=== PATIENT | male | born 1950 | race Caucasian/White ===

== ENCOUNTER 2017-02-01 12:40 | Inpatient (IN) | payer OTHER, MEDICAID ==
[~2017-02-01] VITALS: Ht 175.3 cm; Wt 72.1 kg
[2017-02-01 12:49] VITALS: BP 171/98
--- NOTE | 2017-02-01 13:00 | NUR ---
PT BIBA TO BED 5 AT THIS TIME.
--- NOTE | 2017-02-01 13:12 | NUR ---
Note undone in EDM - 02/01/17 at 1553 by MED1 67/M BIBA C/O SEIZURES. EMS STATES PT WAS FROM ADULT DAY CARE IN [place]. EMS STATES PT HAD SEIZURE FOR ONE MINUTE PRIOR TO THIER ARRIVAL ON SCENE. PT HAD ANOTHER SEIZURE EN ROUTE FOR 45 SECONDS, PT WAS GIVEN 2.5NG INTRANASAL VERSED. PT HAS HX OF SEIZURES. SKIN IS PINK/WARM/DRY; G TUBE AT ABDOMEN. PT AWAKE, UNVERBAL ACTING NEUROLOGICALLY AT BASELINE; LUNGS CLEAR BL; HR EVEN AND REGULAR; NO FEVER, CP, SOB, OR COUGH NOTED AT THIS TIME; PATIENT STATES PAIN OF 0/10 AT THIS TIME; PATIENT POSITIONED FOR COMFORT; HOB ELEVATED; BEDRAILS UP X2; BED DOWN. ER MD MADE AWARE OF PT STATUS.
--- NOTE | 2017-02-01 13:12 | NUR ---
67/M BIBA C/O SEIZURES. EMS STATES PT WAS FROM ADULT DAY CARE IN [place]. EMS STATES PT HAD SEIZURE FOR ONE MINUTE PRIOR TO THIER ARRIVAL ON SCENE. PT HAD ANOTHER SEIZURE EN ROUTE FOR 45 SECONDS, PT WAS GIVEN 2.5NG INTRANASAL VERSED. PT HAS HX OF SEIZURES. SKIN IS PINK/WARM/DRY; SKIN TEAR MIDDLE FINGER OF L HAND ;G TUBE AT ABDOMEN. PT AWAKE, UNVERBAL ACTING NEUROLOGICALLY AT BASELINE; LUNGS CLEAR BL; HR EVEN AND REGULAR; NO FEVER, CP, SOB, OR COUGH NOTED AT THIS TIME; PATIENT STATES PAIN OF 0/10 AT THIS TIME; PATIENT POSITIONED FOR COMFORT; HOB ELEVATED; BEDRAILS UP X2; BED DOWN. ER MD MADE AWARE OF PT STATUS.
--- NOTE | 2017-02-01 13:12 | NUR ---
Note undone in EDM - 02/01/17 at 1526 by MED1 67/M BIBA C/O SEIZURES. EMS STATES PT WAS FROM ADULT DAY CARE IN [place]. EMS STATES PT HAD SEIZURE FOR ONE MINUTE PRIOR TO THIER ARRIVAL ON SCENE. PT HAD ANOTHER SEIZURE EN ROUTE FOR 45 SECONDS, PT WAS GIVEN 2.5NG INTRANASAL VERSED. PT HAS HX OF SEIZURES. SKIN IS PINK/WARM/DRY; PT AWAKE, UNVERBAL ACTING NEUROLOGICALLY AT BASELINE; LUNGS CLEAR BL; HR EVEN AND REGULAR; NO FEVER, CP, SOB, OR COUGH NOTED AT THIS TIME; PATIENT STATES PAIN OF 0/10 AT THIS TIME; PATIENT POSITIONED FOR COMFORT; HOB ELEVATED; BEDRAILS UP X2; BED DOWN. ER MD MADE AWARE OF PT STATUS.
[2017-02-01] MEDS ORDERED: NACL 0.9% 1,000 ML IV ONE (13:20)
[2017-02-01] MEDS ORDERED: SYNTHROID0.05 MG GT (13:29)
[2017-02-01] MEDS ORDERED: LIORESAL10 MG GT (13:29)
[2017-02-01] MEDS ORDERED: DEPAKENE250 MG/51 GT (13:29)
[2017-02-01] MEDS ORDERED: VITAMIN D1000 IU GT (13:29)
[2017-02-01] MEDS ORDERED: ENULOSE10 GM/152 GT (13:29)
[2017-02-01] MEDS ORDERED: FISH OIL OMEGA1 EAC2 GT (13:29)
[2017-02-01] MEDS ORDERED: RANITIDINE 150150 MG GT (13:29)
[2017-02-01] MEDS ORDERED: MULTIVITAM9 MG/15 M1 GT (13:29)
[2017-02-01] MEDS ORDERED: OSCAL500 MG GT (13:29)
[2017-02-01] MEDS ORDERED: VITAMIN D1000 IU PO (13:29)
[2017-02-01] MEDS ORDERED: MOTRIN600 MG GT (13:37)
[2017-02-01] MEDS ORDERED: ATIVAN0.5 MG GT (13:37)
--- NOTE | 2017-02-01 13:44 | NUR ---
X RAY AT BEDSIDE
--- NOTE | 2017-02-01 14:30 | NUR ---
PT HAD SEIZURE [address] ZARATE NOTIFIED.
[2017-02-01] MEDS ORDERED: LORazepam 2 MG/ML VIAL IVP ONE (14:35)
[2017-02-01] MEDS ORDERED: VALPROIC ACID 250 MG/5 ML UDC PO ONE (14:45)
--- NOTE | 2017-02-01 15:06 | NUR ---
ADMINISTERED DEPAKENE 125MG VIA G TUBE
--- NOTE | 2017-02-01 15:29 | NUR ---
GAVE REPORT TO ISRRAEL RODRIGEZ
--- NOTE | 2017-02-01 15:37 | NUR ---
Patient will be admitted to care of DR HOWELL. Admited to [facility]. Will go to room 124. Belongings list completed. Report to ISRRAEL RODRIGEZ.
[2017-02-01 16:10] VITALS: BP 119/72
[2017-02-01] MEDS ORDERED: LORazepam 2 MG/ML VIAL IVP PRN (16:10)
[2017-02-01] MEDS ORDERED: LORazepam 0.5 MG TAB GT PRN (16:10)
[2017-02-01] MEDS ORDERED: ONDANSETRON 4 MG/2 ML VIAL IVP PRN (16:10)
[2017-02-01] MEDS ORDERED: HYDROcodone/APAP 5/325 MG 1 TAB TAB GT PRN (16:10)
[2017-02-01] MEDS ORDERED: IBUPROFEN 600 MG TAB GT PRN (16:10)
[2017-02-01] MEDS ORDERED: ACETAMINOPHEN 325 MG TAB PO PRN (16:10)
[2017-02-01] MEDS ORDERED: CALCIUM CARBONATE 500 MG TAB GT SCH (16:10)
--- NOTE | 2017-02-01 16:10 | NUR ---
PT ADMITTED FROM ER, AWAKE AND RESPONSIVE, NON VERBAL. WITH HX OF SEIZURES. BREATHING EVENLY AND UNLABORED. O2 AT 2L/MIN VIA NC. NO SIGNS OF ACUTE DISTRESS. NO EPISODE OF SEIZURES NOTED, SEIZURE PRECAUTIONS IN PLACE. CAREGIVER AT BEDSIDE. SKIN IS WARM AND DRY. NOTED SKIN TEAR ON LEFT MIDDLE FINGER. KEPT CLEAN AND DRY. NO BLEEDING OR DISCHARGE NOTED. GTUBE NOTED INTACT AND PATENT. NOTED 30CC RESIDUAL OF GASTRIC CONTENT. KEPT HOB ELEVATED, ASPIRATION PRECAUTIONS MAINTAINED. FLACC 0. PROVIDED SAFETY AND COMFORT. CALL LIGHT WITHIN REACH.
[2017-02-01] MEDS ORDERED: ACETAMINOPHEN 650 MG/20.3 ML UDC GT PRN (16:35)
[2017-02-01] MEDS ORDERED: OMEGA GT SCH (17:00)
[2017-02-01] MEDS ORDERED: EPA GT SCH (17:00)
[2017-02-01] MEDS ORDERED: DHA GT SCH (17:00)
[2017-02-01] MEDS ORDERED: FISH OIL GT SCH (17:00)
[2017-02-01] MEDS: BACLOFEN 10 MG TAB GT SCH (17:13)
[2017-02-01] MEDS: DEXT 5% /NACL 0.9% 1,000 ML IV SCH (17:13)
[2017-02-01] MEDS ORDERED: GAUZE TP PRN (18:50)
[2017-02-01] MEDS ORDERED: NACL 0.9% IRR 250 ML BOTTLE IR PRN (18:50)
[2017-02-01] MEDS ORDERED: TRANSPARENT DRESSING TP PRN (18:50)
--- NOTE | 2017-02-01 19:01 | NUR ---
PT AWAKE AND RESPONSIVE, NO SIGNS OF ACUTE DISTRESS. ENDORSED TO ONCOMING WELLNESS TRAINER NURSE FOR CONTINUITY OF CARE.
--- NOTE | 2017-02-01 19:30 | NUR ---
RECEIVED FROM AM RN IN BED AWAKE AND ALERT. NO SOB. FLACC 0-. BUSINESS INSURANCE AGENT AT BEDSIDE. GT IN PLACE. WITH IVF OF D5NS 100 ML/H TO RAC #20. NON VERBAL PER WATCHER. CONTRACTED. MENTATION OBTUNDED. DX. OF POST SEIZURE. TOTAL CARE AND NEEDS WILL BE ANTICIPATED. PADDED SIDERAILS IN PLACE. TELEMETRY MONITORING. PT. PLACED NEAR NSG. UNIT FOR EASY PHYSICAL VISIBILITY.
[2017-02-01 20:15] VITALS: BP 122/76
[2017-02-01] MEDS ORDERED: NON-FORMULARY ITEM (Ranitidine HCl 150 MG) GT SCH (21:00)
[2017-02-01] MEDS ORDERED: VITAMIN D 400 IU TAB GT SCH (21:00)
[2017-02-01] MEDS ORDERED: VALPROIC ACID 250 MG/5 ML UDC GT SCH (21:00)
--- NOTE | 2017-02-01 21:00 | NUR ---
PT.S SKIN TEAR TO MIDDLE FINGER CLEANSED WITH NS , PAT DRIED AND COVERED WITH TRANSPARENT DRESSING. TOLERATED WELL. NEEDS WILL BE ANTICIPATED AND WILL BE MET.
[2017-02-01] MEDS: FAMOTIDINE 20 MG TAB GT SCH (21:02)
[2017-02-02 00:28] VITALS: BP 105/52
--- NOTE | 2017-02-02 00:33 | NUR ---
PT. SLEEPING. VP CORPORATE DEVELOPMENT AT BEDSIDE. SIDERAILS PADDED. SO FAR NO SEIZURES NOTED. ON TELEMETRY MONITORING. CALL LIGHT WITH IN REACH AND ENCOURAGED CARE FIVER TO CALL FOR ANY HELP THEY MAY NEED.
[2017-02-02] MEDS: DEXT 5% /NACL 0.9% 1,000 ML IV SCH ×3 (03:41→23:43)
--- NOTE | 2017-02-02 03:44 | NUR ---
KEPT DRY AND CLEAN. JEWELRY SORTER AT BEDSIDE. NO COMPLAINTS DONE. TURNED Q 2H. PILLOW SUPPORT TO PRESSURE AREAS. NO SEIZURE NOTED. TELEMETRY MONITORING. WITH IVF D5NS AT 100 ML/H.
[2017-02-02 04:00] VITALS: BP 124/67
--- NOTE | 2017-02-02 06:43 | NUR ---
PT. AWAKE AT THIS TIME. NONE VERBAL NEEDS ANTICIPATED AND MET. TOTAL CARE. TELEMETRY MONITORING. NO SEIZURE EPISODE THIS SHIFT NOTED .
--- NOTE | 2017-02-02 07:15 | NUR ---
RECEIVED REPORT FROM NIGHT NURSE. PT IS NON-VERBAL. ON O2 2L VIA NC. IV TO RIGHT AC 22G INFUSING WELL, SKIN TEAR TO LEFT PALM. BUE CONTRACTED. INITIAL ASSESSMENT COMPLETED. REVIEWED PLAN OF CARE WITH PT, PT UNABLE TO VERBALIZED UNDERSTANDING. ORIENTED PT TO ROOM AND ENVIRONMENT. ALL SAFETY/FALL PRECAUTIONS MET. CALL LIGHT WITHIN REACH. WILL CONTINUE TO MONITOR.
--- NOTE | 2017-02-02 07:40 | NUR ---
PATIENT HAS BEEN SCREENED AND CATEGORIZED HIGH NUTRITION RISK. PATIENT WILL BE SEEN WITHIN 1-2 DAYS OF ADMISSION. 02/01/17-02/02/[address]
[2017-02-02 08:00] VITALS: BP_SYST 11; BP_SYST 111; BP_DIAS 65
[2017-02-02] MEDS: LEVOTHYROXINE 0.05 MG TAB GT SCH (08:45)
[2017-02-02] MEDS: LACTULOSE 20 GM/30 ML UDC GT SCH (08:45)
[2017-02-02] MEDS: BACLOFEN 10 MG TAB GT SCH ×3 (08:45→16:23)
--- NOTE | 2017-02-02 08:45 | NUR ---
DUE MEDICATIONS GIVEN VIA G-TUBE. NO RESIDUAL. PT TOLERATED WELL. CALL LIGHT WITHIN REACH. WILL CONTINUE TO MONITOR.
[2017-02-02] MEDS ORDERED: FERROUS FUM GT SCH (09:00)
[2017-02-02] MEDS ORDERED: MINERALS GT SCH (09:00)
[2017-02-02] MEDS ORDERED: VITAMIN D 400 IU TAB PO SCH (09:00)
[2017-02-02] MEDS ORDERED: MULTIVIT GT SCH (09:00)
[2017-02-02] MEDS ORDERED: LACTULOSE 20 GM GT SCH (09:00)
[2017-02-02] MEDS: VALPROIC ACID 250 MG/5 ML UDC GT SCH ×2 (10:11→20:45)
--- NOTE | 2017-02-02 11:37 | NUR ---
PT CURRENTLY AWAKE. ALL NEEDS MET. CAREGIVER AT BEDSIDE. WILL CONTINUE TO MONITOR.
--- NOTE | 2017-02-02 11:58 | NUR ---
02/02/17 RD INITIAL ASSESSMENT COMPLETED PLEASE REFER TO NUTRITION ASSESSMENT UNDER CARE ACTIVITY FOR ESTIMATED NUTRITIONAL NEEDS. RD RECOMMENDATIONS: 1. RECOMMEND TUBE FEEDING ISOSOURCE AT 10 ML/HR AND ADVANCE 10 ML Q6H TOLERATED TO GOAL OF 50 ML/HR. --AT GOAL OF 50 ML/HR THIS WILL PROVIDE 1200 ML TOTAL VOLUME, 1800 KCAL, 82 GM PROTEIN, MEETING 99% OF PT ESTIMATED KCAL NEEDS AND 100% OF PT ESTIMATED PROTEIN NEEDS 2. RD WILL F/U 2-3 DAYS; HIGH RISK. BLANCA CABAN RD
[2017-02-02 12:00] VITALS: BP 129/44
--- NOTE | 2017-02-02 12:19 | NUR ---
DUE MEDICATION GIVEN VIA G-TUBE. PT TOLERATED WELL. CAREGIVER AT BEDSIDE. ALL NEEDS MET CALL LIGHT WITHIN REACH. WILL CONTINUE TO MONITOR.
[2017-02-02] MEDS ORDERED: INTERDRY CLOTH TP SCH ×2 (13:30→14:15)
[2017-02-02] MEDS ORDERED: INTERDRY CLOTH TP PRN (13:30)
[2017-02-02] MEDS ORDERED: HYDRAGUARD CREAM TP PRN (13:35)
--- NOTE | 2017-02-02 14:10 | NUR ---
CHECKED IN ON PT. PT CURRENTLY AWAKE. CAREGIVER AT BEDSIDE. ALL NEEDS MET.
--- NOTE | 2017-02-02 15:01 | NUR ---
WOUND CARE EVALUATION NOTES: REASON FOR EVALUATION: LEFT MIDDLE FINGER SKIN TEAR COMPLETE SKIN ASSESSMENT DONE ON THIS67 Y/O MALE PATIENT FROM [facility] TO [facility], WITH INITIAL DIAGNOSIS OF STATUS EPILEPTICUS. PAST MEDICAL HISTORY INCLUDE SEIZURE DISORDER AND VIT. D DEFICIENCY. ALL ABOVE INFORMATION WAS OBTAINED FROM THE ADMISSION H&P. LABS ARE WBC 6.8, H/H 13.0/38.8, GLUCOSE 255, ALBUMIN 2.7, PT/INR 13.9/1.5 AND PTT 26.4. CURRENT MEDS INCLUDE MULTIVITAMINS/MINERALS, ATIVAN AND NORCO. PATIENT IS AWAKE, MUMBLE WORDS AT TIMES. SKIN WARM TO TOUCH WNL, TOENAILS ARE SLIGHTLY THICKENED, NO EDEMA, WITH HAIR GROWTH AND +2 BILATERAL PEDAL PULSES. URINE AND BOWEL INCONTINENT. ON 02 PER NASAL CANNULA. NEEDS MAX ASSISTANCE IN TURNING. INITIAL PLAN OF CARE AND PRESSURE PREVENTIVE MEASURES DISCUSSED, UNABLE TO VERBALIZE UNDERSTANDING. INTEGUMENTARY: LEFT PALM OF HAND - FUNGAL-LIKE. MOIST WITH MILD ODOR NOTED PERIAREA - MOIST DUE TO URINE AND BOWEL INCONTINENCE RECOMMENDATIONS: -SACRALCOCCYX TO PERIAREA: CLEANSE WITH MILD SOAP AND WATER, PAT DRY, APPLY HYDRAGUARD BIDWC AND PRN WITH SOILING. LEAVE OPEN TO AIR -CLEANSE BLE WITH MILD SOAP AND WATER, PAT DRY, APPLY HYDRAGUARD BIDWC AND LEAVE OPEN TO AIR -CLEANSE BILATERAL HAND WITH MILD SOAP AND WATER, PAT DRY, APPLY INTERDRY CLOTH Q 7 DAYS AND PRN WITH SOILING/DISPLACEMENT --TURN AND REPOSITION PATIENT Q2H TO LEFT AND RIGHT SIDE ONLY TO OFFLOAD SACRALCOCCYX -ASSESS AND MONITOR SKIN CONDITION DURING POSITION CHANGE, PLEASE PAY PARTICULAR ATTENTION TO SACRALCOCCYX, ELBOWS AND HEELS -OFFLOAD BILATERAL HEELS BY PLACING PILLOWS UNDER CALVES AT ALL TIMES, UNLESS OTHERWISE CONTRAINDICATED -PRESSURE REDISTRIBUTION SURFACE THERAPY -KEEP SKIN CLEAN AND DRY AT ALL TIMES. RECOMMENDATIONS DISCUSSED WITH PRIMARY RN. WILL FOLLOW UP PATIENT Q 7 DAYS AND PRN. PLEASE CONTACT [facility] FOR ANY CONCERNS, QUESTIONS AND CHANGES IN SKIN CONDITION.
[2017-02-02 16:00] VITALS: BP 128/75
--- NOTE | 2017-02-02 16:25 | NUR ---
DUE MEDICATION GIVEN VIA G-TUBE. PT TOLERATED WELL. AL NEEDS MET. CALL LIGHT WITHIN REACH.
--- NOTE | 2017-02-02 17:24 | NUR ---
PT AWAKE. CAREGIVER AT BEDSIDE. ALL NEEDS MET. CALL LIGHT WITHIN REACH. WILL CONTINUE TO MONITOR.
--- NOTE | 2017-02-02 19:18 | NUR ---
ENDORSED PLAN OF CARE TO NIGHT NURSE, PT IN STABLE CONDITION. CAREGIVER AT BEDSIDE.
--- NOTE | 2017-02-02 19:20 | NUR ---
RECEIVED REPORT FROM DAY RN FOR CONTINUITY OF CARE. PATIENT IS A&OX1, EXPLAINED PLAN OF CARE TO PATIENT AND CAREGIVER AT BEDSIDE. SHIFT ASSESSMENT DONE, VS TAKEN, STABLE AT THIS TIME. NO S/S OF RESPIRATORY DISTRESS NOTED ON 2L NC. FLACC-0. RT AC 20 GAUGE PATENT AND INFUSING FLUIDS WELL. PT HAS G TUBE, STARTED FEEDING ISOSOURCE AT 50ML/HR, NO RESIDUAL NOTED. PT HAS LEFT PALM RASH. FALL /SAFETY PRECAUTIONS ENFORCED. CALL LIGHT WITHIN REACH. CAREGIVER AT BEDSIDE. WILL CONTINUE TO MONITOR
[2017-02-02 20:00] VITALS: BP 140/78
[2017-02-02] MEDS: FAMOTIDINE 20 MG TAB GT SCH (20:45)
--- NOTE | 2017-02-02 20:45 | NUR ---
DUE MEDICATIONS ADMINISTERED VIA G TUBE, TOLERATED WELL. NO RESIDUAL NOTED. REPOSITIONED PATIENT FOR COMFORT. WILL CONTINUE TO MONITOR.
[2017-02-03] VITALS: BP 123/66
--- NOTE | 2017-02-03 00:14 | NUR ---
VS TAKEN, STABLE. TURNED AND REPOSITIONED PATIENT, SMALL FORMED BM AND PT VOIDED. CLEANED AND PROVIDED NEW LINENS. WILL CONTINUE TO MONITOR.
[2017-02-03] MEDS ORDERED: HYDRAGUARD CREAM TP SCH ×2 (01:00)
--- NOTE | 2017-02-03 02:18 | NUR ---
TURNED AND REPOSITIONED PATIENT. CAREGIVER AT BEDSIDE. WILL CONTINUE TO MONITOR.
--- NOTE | 2017-02-03 03:56 | NUR ---
PATIENT MEDICATED FOR PAIN. TURNED AND REPOSITIONED. CAREGIVER AT BEDSIDE. WILL CONTINUE TO MONITOR.
[2017-02-03 04:00] VITALS: BP 120/56
--- NOTE | 2017-02-03 06:00 | NUR ---
SUCTIONED PATIENT, TOLERATED WELL. TURNED AND REPOSITIONED. WILL CONTINUE TO MONITOR.
--- NOTE | 2017-02-03 07:25 | NUR ---
ENDORSED PATIENT TO DAY RN FOR CONTINUITY OF CARE, PATIENT IS IN STABLE CONDITION.
--- NOTE | 2017-02-03 07:26 | NUR ---
RECEIVED REPORT FROM THE BOARD CERTIFIED BEHAVIORAL ANALYST NURSE. PT IS WAKE. TALKING LOUDLY. NON-COHERENT. PT HAS INTERDRY IN HIS L PALM, FEEDING MACHINE AT BEDSIDE. GT IN PLACE. DRY AND INTACT, ISOSOURCE AT 50ML/HR. IV ON R AC 20G, D5 NS RUNNING AT 100L. NO SIGNS OF DISTRESS. TRACKS WITH HIS EYES. WILL CONTINUE TO MONITOR PT.
[2017-02-03 08:00] VITALS: BP 141/66
[2017-02-03] MEDS: LACTULOSE 20 GM/30 ML UDC GT SCH (09:34)
[2017-02-03] MEDS: BACLOFEN 10 MG TAB GT SCH (09:35)
[2017-02-03] MEDS: VALPROIC ACID 250 MG/5 ML UDC GT SCH (09:35)
[2017-02-03] MEDS: LEVOTHYROXINE 0.05 MG TAB GT SCH (09:35)
[2017-02-03] MEDS: DEXT 5% /NACL 0.9% 1,000 ML IV SCH (09:38)
--- NOTE | 2017-02-03 09:53 | NUR ---
HELD THE FEEDING, CHECKED FOR PLACEMENT, RESIDUAL, NO RESIDUAL. ADMINISTERED MORNING MEDS AND FLUSHED WELL. TURNED THE FEEDING BACK ON. PT'S SUPERVISOR ELECTROLYTIC TINNING IS HERE AT BEDSIDE. WILL CONTINUE TO MONITOR PT.
[2017-02-03] MEDS ORDERED: DEPAKENE250 MG/51 GT (09:59)
--- NOTE | 2017-02-03 10:07 | NUR ---
SS NOTE: PER WISAM, GYMNASTICS COACH OR INSTRUCTOR OF [facility], ONCE THEIR NURSE TALKS TO PT'S ATTENDING RN ABOUT PT'S MEDICATIONS, THEY CAN MAKE ARRANGEMENTS TO TAKE PT BACK HOME.
--- NOTE | 2017-02-03 10:20 | NUR ---
WENT OVER DISCHARGE INSTRUCTIONS WITH THE ADOLESCENT SPECIALIST. THE ADOLESCENT SPECIALIST SIGNED ALL THE NECESSARY PAPERWORK. I REMOVED THE IV, CANNULA INTACT. DISCONNECTED FEEDING TUBE. REMOVED THE ARM BANDS. REMOVED THE TELE MONITOR. ORDERLY'S CHANGED PT INTO TRANSPORT GOWN AND BLANKET. THE ADOLESCENT SPECIALIST STILL AT HIS BEDSIDE. WILL WAIT FOR TRANSPORTATION.
--- NOTE | 2017-02-03 10:25 | NUR ---
GAVE REPORT TO YOSEPH AT [facility]. THEY ARE ARRANGING TRANSPORTATION. THEY ARE EXPECTING HIM.
--- NOTE | 2017-02-03 12:00 | NUR ---
THE MAINFRAME SYSTEMS ADMINISTRATOR CAME WITH A WHEELCHAIR. USED A [facility] LIFT TO TRANSPORT PT. 2 CARETAKERS ACCOMPANIED PT OUT TO THE [facility]. PT IS READY TO GO. HE IS IN STABLE CONDITION.
[2017-02-04] MEDS ORDERED: NACL 0.9% IRR 250 ML BOTTLE IR SCH (09:00)
[2017-02-04] MEDS ORDERED: TRANSPARENT DRESSING TP SCH (09:00)
[2017-02-04] MEDS ORDERED: GAUZE TP SCH (09:00)
== END 2017-02-03 12:00 | DRG 100 ==
LOC: MED 12:40 → MTU 15:18
PROVIDERS: ADMIT Preventive Medicine Preventive Medicine/Occupational Environmental Medicine; ATTEND Preventive Medicine Preventive Medicine/Occupational Environmental Medicine
DX: G40.901 Epilepsy, unspecified, not intractable, with status epilepticus (principal); G82.50 Quadriplegia, unspecified; R73.9 Hyperglycemia, unspecified; R13.10 Dysphagia, unspecified; E78.5 Hyperlipidemia, unspecified; E55.9 Vitamin D deficiency, unspecified; E03.9 Hypothyroidism, unspecified; K59.00 Constipation, unspecified; F03.90 Unspecified dementia, unspecified severity, without behavioral disturbance, psychotic disturbance, mood disturbance, and anxiety; F31.9 Bipolar disorder, unspecified; G20 Parkinson's disease; Z79.899 Other long term (current) drug therapy; Z93.1 Gastrostomy status

== ENCOUNTER 2019-10-30 12:14 | Emergency (ER) | payer OTHER, MEDICARE ==
[~2019-10-30] VITALS: Ht 160 cm; Wt 84.8 kg
[~2019-10-30 12:14] MED LIST: ATI.5 GT; BACL10TA4 GT; IBUP-2213 GT; LACT10SO93 GT; MULT9LIQ5 GT; OMEG-78 GT; OSC500 GT; SYN.05 GT; VALP-22 GT; VITD1000 GT; [UNRECOGNIZED DRUG - CODE] GT
--- NOTE | 2019-10-30 12:40 | NUR ---
69 Y/O M BIB AMBULANCE FROM FIRST ST[facility]. PT G-TUBE CAME OUT DURING FEEDING. PT CAREGIVER AT BEDSIDE. G-TUBE THAT WAS IN PLACE WAS BROUGHT IN FOR SIZE VERIFICATION. PT POSITIONED FOR COMFORT, SIDE RAIL X2 IN PLACE. CASTRO
--- NOTE | 2019-10-30 13:00 | NUR ---
DR. MULLIGAN AT BEDSIDE PLACING G-TUBE
--- NOTE | 2019-10-30 13:25 | NUR ---
XRAY AT BEDSIDE
[2019-10-30 14:15] VITALS: BP 186/73
--- NOTE | 2019-10-30 14:15 | NUR ---
Patient discharged with v/s stable. Written and verbal after care instructions given and explained. Patient verbalized understanding. Wheel Chair Assisted with by caregiver. All questions addressed prior to discharge. Advised to follow up with PMD.
== END 2019-10-30 14:15 | disposition home or self-care (01) ==
LOC: MED 12:14
DX: Z43.1 Encounter for attention to gastrostomy (principal); K56.41 Fecal impaction; Z86.69 Personal history of other diseases of the nervous system and sense organs; Z79.899 Other long term (current) drug therapy
CPT/HCPCS: 43762; 74241; 99284; Q0092